=== PATIENT | male | born 2000 | race Hispanic/Latino ===

== ENCOUNTER 2022-04-27 22:55 | Emergency (ER) | payer OTHER, MEDICAID, SELFPAY ==
[2022-04-27 23:06] VITALS: BP 136/99; PULSE 75; RESP 18; TEMP 36.6; O2SAT 97
--- NOTE | 2022-04-28 01:33 | ED_ITS ---
HPI - Dental/Oral General Chief complaint: Dental/Oral Stated complaint: tooth pain Time Seen by Provider: 04/27/22 23:08 Mode of arrival: Ambulatory History of Present Illness HPI Narrative: 22-year-old male smoker presents with his significant other and a chief complaint of bilateral lower jaw dental pain and over the course of the day perhaps some foul tasting drainage. Denies any fever or chills, no swelling of his face, tongue or lips. He denies any difficulty swallowing. He denies runny nose, sore throat or cough and has no chest pain or shortness of breath Related Data Previous Rx's Medication Instructions Recorded penicillin V potassium 500 mg 500 mg PO Q6H 10 days #40 tabs 04/28/22 tablet Allergies Allergy/AdvReac Type Severity Reaction Status Date / Time No Known Drug Allergies Allergy Verified 04/28/22 01:42 Review of Systems Review of Systems Narrative: GENERAL: Denies chills, fatigue, malaise, fever, sweats. HEENT see HPI RESPIRATORY: Denies dyspnea, cough, wheezing, hemoptysis, sputum. CARDIOVASCULAR: Denies chest pain, palpitations, orthopnea, edema, GASTROINTESTINAL: Denies nausea, vomiting, abdominal pain, diarrhea, constipation, melena. : Denies dysuria, frequency, incontinence, hematuria, urinary retention. MUSCULOSKELETAL: denies weakness, joint pain, or bony pain SKIN: Denies rash, skin lesions, or other NEUROLOGIC: Denies weakness, headache, numbness, change in speech, confusion, seizures, incoordination. PSYCHIATRIC: No concerning psychosocial issues. 12 point review of systems is negative except for those stated above Patient History Social History Smoking Status: Current every day smoker Smoking Status: Current every day smoker Substance Use Type: marijuana Exam Narrative Exam Narrative: GEN: AOx3 and in mild distress EYES: Pupils are equal, round, and reactive to light and accommodation. Extraoccular muscles are intact bilaterally. There is no subconjunctival hemorrhage or exudate. ENT: No facial swelling, erythema or tenderness. Widespread poor dentition throughout, no obvious intraoral abscess CHEST: Lungs are clear to auscultation bilaterally and free of wheezes, rales, or rhonchi. Heart rate is regular rhythm, there are no murmurs, clicks, rubs, or gallops. There is no chest wall tenderness. ABD: Abdomen is soft and nontender. There is no guarding or rebound. Bowel sounds are normal in all 4 quadrants. There is no mass or organomegaly. EXT: Full painless ROM of all extremities with no loss of sensation or strength. SKIN: Warm, pink, and dry. No erythema or rash Initial Vital Signs Initial Vital Signs: Vital Signs Temperature 98 F 04/27/22 23:06 Pulse Rate 75 04/27/22 23:06 Respiratory Rate 18 04/27/22 23:06 Blood Pressure 136/99 H 04/27/22 23:06 Pulse Oximetry 97 04/27/22 23:06 Oxygen Delivery Method Room Air 04/27/22 23:06 Course Orders Ordered: Discontinued Medications Ketorolac Tromethamine (Ketorolac 30 Mg/Ml Vial) 30 mg IM NOW ONE Stop: 04/28/22 01:31 Last Admin: 04/28/22 01:43 Dose: 30 mg Documented By: MAURICIO Penicillin V Potassium (Penicillin 250 Mg Tab Prepack) 1 bottle MISC SEEINSTR ONE Stop: 04/28/22 01:31 Last Admin: 04/28/22 01:43 Dose: 1 bottle Documented By: MAURICIO Vital Signs Vital signs: Vital Signs - 8 hr 04/27/22 23:06 Temperature 98 F Pulse Rate 75 Respiratory Rate 18 Blood Pressure 136/99 H Pulse Oximetry 97 Oxygen Delivery Method Room Air MDM - Dental/Oral MDM Narrative Medical decision making narrative: [22] year old patient presents with dental pain and foul tasting drainage Multiple etiologies for patient's symptoms considered including, but not limited to: [Dental jody, abscess, facial abscess versus other] Prior Charts reviewed in our EMR Primary Historian: patient Patient with poor dentition throughout, there is no facial swelling or intraoral mass suggesting abscess that maybe drained. Patient pain is well controlled, he is not septic, controlling secretions and tolerating orals Patient's symptoms improved over duration of stay with above-stated therapies. Findings and discharge diagnosis discussed with patient/family followed by alfonso balization of understanding Return precautions discussed with patient/family whom verbalize understanding of diagnosis and plan Discharge Plan Departure Patient Disposition: Home Clinical Impression: Toothache, Dental caries Instructions: Tooth Abscess, DI for Dental Pain Activity Restrictions/Additional Instructions: *You have been diagnosed with [dental infection] *What to do: *Please continue to take your regular medications as directed. [ x] New medication prescriptions sent to your pharmacy: [ [facility]] [ ] New medication written as a paper prescription [ ] No new medications given *Please follow up with your primary care provider in 2-3 days, call for an appointment. Let them know you were seen in the Emergency Department and that we ask that you be seen in follow up. We will electronically transmit a record of today's note if your PCP is in our system *If you do not have a primary care provider please contact the [facility] Resource line at [phone]. They will ask some questions about your medical history and help get you set up with a doctor in the community. *Return to Emergency Department if you should have any new, worsening or concerning symptoms, such as [fever greater than 101 F, shaking chills, worsening pain, persistent vomiting or other bothersome symptoms] Prescriptions: New penicillin V potassium 500 mg tablet 500 mg PO Q6H 10 Days Qty: 40 0RF Stand Alone Forms: Patient Portal/API
[2022-04-28] MEDS: PENICILLIN 250 MG TAB PREPACK 1 BOTTLE MISC (01:43)
[2022-04-28] MEDS: KETOROLAC 30 MG/ML VIAL IM (01:43)
[2022-04-28 01:48] VITALS: BP 132/86; PULSE 87; RESP 17; O2SAT 95
== END 2022-04-28 01:50 | disposition home or self-care (01) ==
PROVIDERS: Emergency Provider Emergency Medicine
DX: K08.89 Other specified disorders of teeth and supporting structures (principal); K02.9 Dental caries, unspecified
CPT/HCPCS: 96372; 99283; J1885

== ENCOUNTER 2022-07-31 18:59 | Emergency (ER) | payer SELFPAY ==
[2022-07-31 19:02] VITALS: BP 101/54; PULSE 59; RESP 16; TEMP 36.6; O2SAT 97; BMI 24.4
== END 2022-07-31 21:22 | disposition left against medical advice (07) ==
PROVIDERS: Emergency Provider Emergency Medicine
CPT/HCPCS: 99281

== ENCOUNTER 2024-09-19 22:26 | Emergency (ER) | payer OTHER, SELFPAY ==
[2024-09-19 22:42] VITALS: BP 112/61; PULSE 71; RESP 17; TEMP 36.8; O2SAT 96; BMI 24.3
--- NOTE | 2024-09-19 22:51 | DI.RAD.S_ITS ---
PROCEDURE: XR SHOULDER RT MIN 2V INDICATIONS: deformity, limited movement TECHNIQUE: 3 views of the shoulder were acquired. COMPARISON: None. FINDINGS: Bones: No fractures or dislocations. No suspicious bony lesions. Visualized ribs appear intact. Soft tissues: No suspicious soft tissue calcifications. IMPRESSION: No acute bony abnormality. Dictated by: Vishal Rosenthal M.D. on 09/19/2024 at 23:32 Approved by: Vishal Rosenthal M.D. on 09/19/2024 at 23:32
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
[2024-09-20 02:29] VITALS: BP 120/61; PULSE 54; RESP 174; O2SAT 94
== END 2024-09-20 02:30 | disposition home or self-care (01) ==
PROVIDERS: Emergency Provider Emergency Medicine
DX: S46.811A Strain of other muscles, fascia and tendons at shoulder and upper arm level, right arm, initial encounter (principal); Y04.8XXA Assault by other bodily force, initial encounter
CPT/HCPCS: 73030; 99283